=== PATIENT | male | born 1940 | race Caucasian/White ===

== ENCOUNTER 2023-08-15 12:23 | Day surgery (SDC) | payer OTHER ==
[~2023-08-15] VITALS: Ht 175.3 cm; Wt 74.5 kg
[2023-08-15] MEDS ORDERED: ASPI81TA52 PO (12:56)
[2023-08-15] MEDS ORDERED: ATOR80TA PO (12:56)
[2023-08-15] MEDS ORDERED: AMLO10TA28 PO (12:56)
[2023-08-15] MEDS ORDERED: LISI20TA28 PO (12:56)
[2023-08-15] MEDS ORDERED: LISI40TA13 PO (12:58)
[2023-08-15 13:08] VITALS: BP 148/70; PULSE 73; RESP 16; TEMP 97.8; O2SAT 95
[2023-08-15] MEDS ORDERED: LIDOcaine 1% 30ml preserv. free vial SQ STA (14:08)
--- NOTE | 2023-08-15 14:30 | NUR ---
Angio at bedside performing Thyroid biopsy
[2023-08-15 14:59] VITALS: BP 148/70; PULSE 72; RESP 16; TEMP 97.9; O2SAT 98
== END 2023-08-15 14:00 | disposition home or self-care (01) ==
LOC: SSTAY O 12:23
PROVIDERS: ATTEND Orthopaedic Surgery
DX: E04.1 Nontoxic single thyroid nodule (principal)
CPT/HCPCS: 10005; 10007; 76942